=== PATIENT | male | born 1995 | race Caucasian/White ===

== ENCOUNTER 2021-01-02 20:11 | Emergency (ER) | payer BC, OTHER ==
[~2021-01-02] VITALS: Ht 172.7 cm; Wt 104.3 kg
[2021-01-02] MEDS ORDERED: IBUPROFEN 800800 M1 PO (21:40)
[2021-01-02 22:56] VITALS: BP 137/81
== END 2021-01-02 22:00 | disposition home or self-care (01) ==
LOC: ER 20:11
DX: S93.402A Sprain of unspecified ligament of left ankle, initial encounter (principal); Z98.890 Other specified postprocedural states; X50.1XXA Overexertion from prolonged static or awkward postures, initial encounter; Y93.89 Activity, other specified; Y92.89 Other specified places as the place of occurrence of the external cause; Y99.0 Civilian activity done for income or pay